=== PATIENT | female | born 1970 | race Caucasian/White ===

== ENCOUNTER 2017-07-07 05:32 | Emergency (ER) | payer OTHER ==
[2017-07-07] MEDS ORDERED: Naproxen TAB* 250 MG PO ONE (06:11)
[2017-07-07] MEDS ORDERED: Cephalexin CAP* 500 MG PO ONE (06:11)
--- NOTE | 2017-07-07 06:18 | ED ---
I, Oh,Daly, scribed for Renee Hickey MD on 07/07/17 at 0615 . Upper Extremity Pain - HPI Summary HPI Summary: This 46 y/o female presents to ED for gradually worsening LUE elbow tenderness since yesterday. Positive swelling overnight. Negative fever. Pt recently came back 3 days ago from [place]. Pt decided to visit ED when she became concern about possible blood clots. PMHx includes HLD that is well controlled with medications. FHx is positive for HLD. Primary care involves Gladys Garcia NP. She lives with , is light daily smoker. Pt works in [employer]. Plan of care involves discharge, ice & elevation, and outpatient f/u with PCP is discussed with pt, and she is agreeable at this moment. - History of Current Complaint Chief Complaint: EDExtremityUpper Stated Complaint: POSS BLOOD CLOT LEFT ELBOW/COUGH Hx Obtained From: Patient, Medical Records Mechanism Of Injury: Unknown Onset/Duration: Started Days Ago, Atraumatic, Still Present Timing: Constant Character: Dull Aggravating Factor(s): Nothing Alleviating Factor(s): Nothing Associated Signs & Symptoms: Positive: Swelling, Redness. 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 - Surgical History Surgery Procedure, Year, and Place: CERVICAL SPINAL FUSION 05/2004 Infectious Disease History: No Infectious Disease History: Reports: Traveled Outside the [place] in Last 30 Days - Family History Known Family History: Positive: Other - Positive HLD - Social History Alcohol Use: None Hx Substance Use: No Substance Use Type: Reports: None Hx Tobacco Use: Yes Smoking Status (MU): Current Every Day Smoker Review of Systems Negative: Fever Positive: Other - Positive swelling and pain at LUE elbow All Other Systems Reviewed And Are Negative: Yes Physical Exam Triage Information Reviewed: Yes Vital Signs On Initial Exam: Initial Vitals Temp Pulse Resp BP Pulse Ox 96.8 F 96 16 135/84 97 07/07/17 05:33 07/07/17 05:33 07/07/17 05:33 07/07/17 05:33 07/07/17 05:33 Vital Signs Reviewed: Yes Appearance: Positive: Well-Appearing, No Pain Distress Skin: Positive: Erythema @ - 3 cm diameter of erythematous region at LUE, Other - Mild skin boggy skin at LUE elbow. Negative induration or fluctuance. Head/Face: Positive: Normal Head/Face Inspection Eyes: Positive: EOMI, MACIE Neck: Positive: Supple, Nontender Respiratory/Lung Sounds: Positive: Clear to Auscultation, Breath Sounds Present Cardiovascular: Positive: RRR, Pulses are Symmetrical in both Upper and Lower Extremities. Negative: Murmur, Rub, Other - gallops Musculoskeletal: Positive: Strength/ROM Intact Neurological: Positive: Sensory/Motor Intact, Alert, Oriented to Person Place, Time Psychiatric: Positive: Affect/Mood Appropriate AVPU Assessment: Alert - [place] Coma Scale Coma Scale Total: 15 Diagnostics - Vital Signs Vital Signs Temp Pulse Resp BP Pulse Ox 07/07/17 05:46 90 96 07/07/17 05:44 97.5 F 88 16 140/92 95 07/07/17 05:33 96.8 F 96 16 135/84 97 - Laboratory Lab Statement: Any lab studies that have been ordered have been reviewed, and results considered in the medical decision making process. Course/Dx - Course Course Of Treatment: pt had a 20 hour plane flight starting arriving into [place] on Sat late night with left elbwo and erythema. Pt likely put pressure on elbow while sleeping resulting in a bursitis she has full range of motion and is well appearing - Diagnoses Provider Diagnoses: Bursitis of left elbow Discharge - Discharge Plan Condition: Stable Disposition: HOME Prescriptions: Cephalexin CAP* [Keflex CAP*] 500 mg PO QID #27 cap Naproxen [Naprosyn 500 mg] 500 mg PO BID #14 tab Patient Education Materials: Cephalexin (By mouth), Naproxen (By mouth), Elbow Bursitis (ED) Referrals: Gladys Garcia NP [Primary Care Provider] - 2 Days The documentation as recorded by the scribe, Oh,Soohyun accurately reflects the service I personally performed and the decisions made by me, Renee Hickey MD.
[2017-07-07 06:20] VITALS: BP 127/81
== END 2017-07-07 06:28 | disposition home or self-care (01) ==
LOC: ED 05:32
DX: M70.32 Other bursitis of elbow, left elbow (principal); R22.32 Localized swelling, mass and lump, left upper limb; Y93.9 Activity, unspecified
CPT/HCPCS: 99282; A9270-GY